=== PATIENT | female | born 1995 | race Caucasian/White ===

== ENCOUNTER 2017-08-04 17:28 | Emergency (ER) | payer BC ==
[~2017-08-04] VITALS: Ht 175.3 cm; Wt 100.5 kg
[~2017-08-04 17:28] MED LIST: METH54T PO
[2017-08-04] MEDS ORDERED: TRAMADOL HCL50 MG PO (19:40)
[2017-08-04] MEDS ORDERED: SKELAXIN800 MG PO (19:40)
[2017-08-04 19:52] VITALS: BP 151/94
== END 2017-08-04 19:51 | disposition home or self-care (01) ==
LOC: EME 17:28
DX: S03.40XA Sprain of jaw, unspecified side, initial encounter (principal); X58.XXXA Exposure to other specified factors, initial encounter
CPT/HCPCS: 99281; 99283; J1885